=== PATIENT | female | born 1940 | race Caucasian/White ===

== ENCOUNTER → 2017-05-23 | Outpatient (CLI) | payer MEDICARE ==
--- NOTE | 2017-05-23 13:30 | Diagnostic Imaging Report ---
PROCEDURE: X-RAY CHEST, TWO VIEWS COMPARISON: Lumbar spine radiograph 07/19/2016. INDICATIONS: BRONCHITIS FINDINGS: LUNGS: No consolidations or edema. PLEURA: No effusions or pneumothorax. HEART \T\ MEDIASTINUM: The heart is within normal size-limits. BONES \T\ SOFT TISSUES: No acute findings. Mild L1 compression deformity is unchanged relative to 07/19/2016 lumbar spine radiographs. CONCLUSION: No acute thoracic abnormality. Dictated by: Brant Cordoba M.D. on 05/23/2017 at 13:31 Electronically approved by: Brant Cordoba M.D. on 05/23/2017 at 13:31
== END ==
LOC: RAD 12:11
PROVIDERS: ATTEND Family Medicine
DX: J40 Bronchitis, not specified as acute or chronic (principal)
CPT/HCPCS: 71046

== ENCOUNTER 2019-10-21 08:52 | Emergency (ER) | payer MEDICARE, OTHER ==
[~2019-10-21] VITALS: Ht 157.5 cm; Wt 79.4 kg
--- NOTE | 2019-10-21 09:07 | Emergency Department Note ---
History of Present Illnes History of Present Illness Chief Complaint: Chest Pain History of Present Illness This is a 79 year old female Chief Complaint Comment X 2 DAYS CONTINUO US SUBSTERNAL CHEST PAIN THAT RADIATES BILATERALLY. DENIES ANY N/V. STATES THE PAIN HAS PROGRESSIVELY INCREASED AND WOKE HER UP OUT OF SLEEP. Historian: Patient Arrival Mode: Car Additional Treatment IT QUALITY ASSURANCE ANALYST: NONE Systems Auditor Required: No Onset (how long ago): day(s) (2) Location: Chest Quality: Sharp Radiation: Reports non-radiation Severity: moderate Onset quality: gradual Duration (how long): day(s) (2) Timing of current episode: constant Progression: worsening Chronicity: new Context: Denies recent illness, Denies recent surgery Relieving factors: none Exacerbating factors: none Associated symptoms: Reports denies other symptoms Treatments prior to arrival: none Past Medical/Family History Physician Review I have reviewed the patient's past medical and family history. Any updates have been documented here. Past Medical History Recent Fever: No Clinical Suspicion of Infectio: No New/Unexplained Change in Ment: No Past Medical History: Hypertension, Diabetes, Hyperlipedemia Past Surgical History: Tubal Ligation Other Surgery: FOOT SURGERY Review of Systems Review of Systems Constitutional: Reports no symptoms EENTM: Reports no symptoms Cardiovascular: Reports as per HPI, Reports chest pain Respiratory: Reports no symptoms Gastrointestinal: Reports no symptoms Genitourinary: Reports no symptoms Musculoskeletal: Reports no symptoms Integumentary: Reports no symptoms Neurological: Reports no symptoms Psychological: Reports no symptoms Endocrine: Reports no symptoms Hematological/Lymphatic: Reports no symptoms Physical Exam Related Data Allergies: Coded Allergies: aspirin (Verified Allergy, Severe, FACIAL SWELLING, 10/21/19) Triage Vital Signs Vital Signs Date Time Temp Pulse Resp B/P (MAP) Pulse Ox O2 Delivery O2 Flow Rate FiO2 10/21/19 08:55 98.7 82 18 151/59 96 Vital signs reviewed: Yes Physical Exam CONSTITUTIONAL Constitutional: Present well-developed, Present well-nourished HENT HENT: Present normocephalic, Present atraumatic, Present oropharynx clear/moist, Present nose normal HENT L/R: Present left ext ear normal, Present right ext ear normal EYES Eyes: Reports PERRL, Reports conjunctivae normal NECK Neck: Present ROM normal PULMONARY Pulmonary: Present effort normal, Present breath sounds normal CARDIOVASCULAR Cardiovascular: Present regular rhythm, Present heart sounds normal, Present capillary refill normal, Present normal rate GASTROINTESTINAL Abdominal: Present soft, Present nontender, Present bowel sounds normal GENITOURINARY Genitourinary: Present exam deferred SKIN Skin: Present warm, Present dry MUSCULOSKELETAL Musculoskeletal: Present ROM normal NEUROLOGICAL Neurological: Present alert, Present oriented x 3, Present no gross motor or sensory deficits PSYCHOLOGICAL Psychological: Present mood/affect normal, Present judgement normal Procedures 12 Lead ECG Interpretation ECG Interpretation : Systems Auditor: Interpreted by ED physician Date: Oct 21, 2019 Rhythm: sinus rhythm Rate: normal BPM: 72 QRS axis: normal ST segments normal: Yes T wave inversion: III Clinical Impression: non-specific ECG Assessment & Plan Medical Decision Making MDM 79-year-old female with a past medical history significant for diabetes presents to emergency department for 2 days chest pain. The pain is worse when taking a deep breath. She has never had this before, no history of heart attacks. Initial differential includes ACS versus pulmonary embolism versus pneumonia versus muscular skeletal pain. Work up shows no sig abnormalities. Doubt emergent process at this time. I discussed results patient as well as expected disease time course and management. They will follow up with their primary care provider or return to the emergency department for new or worsening symptoms. Patient's appropriate for discharge. Part of this note was dictated with Fidel and is subject to recognition errors. Reassessment Reassessment time: 10:47 Reassessment Well appearing, NAD Assessment & Plan Final Impression: (1) Chest wall pain Depart Disposition: HOME, SELF-CARE Last Vital Signs Date Time Temp Pulse Resp B/P (MAP) Pulse Ox O2 Delivery O2 Flow Rate FiO2 10/21/19 08:55 98.7 82 18 151/59 96 JAISON DELAROSA MD Oct 21, 2019 09:07
[2019-10-21 09:15] LABS: BASOPHILS # (AUTO) 0.1 (0.0-0.1); BASOPHILS % 0.6 % (0.0-1.0); EOSINOPHILS # (AUTO) 0.1 (0.0-0.4); EOSINOPHILS % 1.7 % (0.0-6.0); HEMATOCRIT 36.9 % (34.2-44.1); HEMOGLOBIN 12.5 g/dL (12.0-16.0); LYMPHOCYTES # (AUTO) 1.7 (1.0-3.2); LYMPHOCYTES % 20.6 % (18.0-39.1); MEAN CORPUSCULAR HEMOGLOBIN 29.3 pg (28-32); MEAN CORPUSCULAR HGB CONC 33.9 g/dL (31-35); MEAN CORPUSCULAR VOLUME 86.6 fL (81-99); MONOCYTES # (AUTO) 0.8 (0.2-0.8); MONOCYTES % 9.1 % (4.4-11.3); NEUTROPHILS # (AUTO) 5.7 (2.1-6.9); NEUTROPHILS % 67.8 % (38.7-80.0); PLATELET COUNT 215 x10e3/uL (140-360); RED BLOOD COUNT 4.26 x10e6/uL (3.6-5.1); RED CELL DISTRIBUTION WIDTH 12.3 % (11.7-14.4)
--- OUTSIDE RECORDS SUMMARY | 2019-10-21 09:32 | XMS REPORT | Continuity of Care Document ---
Author Author [facility] t Organization [facility] Address [address] [place] [address] Dr. Franklin. [address] [place] [phone] Phone Unavailable Care Team Providers [employer] Sales Representative Name Role Phone DELONTE LEWIS Atthossein Unavailable Problems This patient has no known problems. Allergies, Adverse Reactions, Alerts This patient has no known allergies or adverse reactions. Medications This patient has no known medications. Procedures This patient has no known procedures. Results Test Description Test Time Test Comments Results Result Comments Source CHEST [address] [address] Patient Name: CEASAR CHRIS MR #: [id number] : 1940 Age/Sex: 76/F Req #: [id number] Adm Physician: Ordered by: JOSHUA ANDINO, DELONTE Little MD Report #: [id number] Location: [facility] Room/Bed: Procedure: [id number] DX/CHEST 2 VIEWS Exam Date: 05/23/17 Exam Time: 1250 REPORT STATUS: Signed PROCEDURE: X-RAY CHEST, TWO VIEWS COMPARISON: Lumbar spine radiograph 07/19/2016. INDICATIONS: BRONCHITIS FINDINGS: LUNGS: No consolidations or edema. PLEURA: No effusions or pneumothorax. HEART T MEDIASTINUM: The heart is within normal size-limits. BONES T SOFT TISSUES: No acute findings. Mild L1 compression deformity is unchanged relative to 07/19/2016 lumbar spine radiographs. CONCLUSION: No acute thoracic abnormality. Dictated by: Gloria Guthrie M.D. on 05/23/2017 at 13:31 Electronically approved by: Gloria Guthrie M.D. on 05/23/2017 at 13:31 Dictated By: GLORIA GUTHRIE MD [id number] Transcribed By: CM on 05/23/17 1331 COPY TO: DELONTE LEWIS
[2019-10-21 09:42] LABS: ALBUMIN 4.1 g/dL (3.5-5.0); ALBUMIN/GLOBULIN RATIO 1.4 (0.8-2.0); ANION GAP 18.9 mmol/L (8-16); CREATININE, SERUM 1.35 mg/dL (0.57-1.11); POTASSIUM 3.9 mmol/L (3.5-5.1)
--- NOTE | 2019-10-21 09:56 | Diagnostic Imaging Report ---
TECHNIQUE: Frontal view of the chest. INDICATION: ^Y ^CP ^[id number] ^0930 COMPARISON: None DISCUSSION: Limited evaluation due to portable technique. Lines and hardware: Overlying EKG leads are noted. Heart and mediastinum: Cardiomediastinal silhouette, pulmonary vascularity and mediastinal contours are within normal limits. Lungs and pleura: No focal airspace consolidation. No pleural effusion. No pneumothorax. Soft tissues and bones: No acute abnormality. IMPRESSION: Negative for acute intrathoracic process. Signed by: Wes Beltrán MD on 10/21/2019 9:53 AM
--- NOTE | 2019-10-21 10:48 | NUR ---
DR. CHASE AT BEDSIDE UPDATING PATIENT ON RESULTS
[2019-10-21 10:54] VITALS: BP 100/66
== END 2019-10-21 11:11 | disposition home or self-care (01) ==
LOC: ER 09:30
DX: R07.89 Other chest pain (principal); I10 Essential (primary) hypertension; E11.9 Type 2 diabetes mellitus without complications; E78.5 Hyperlipidemia, unspecified
CPT/HCPCS: 36415; 71045; 80053; 83690; 83880; 84484; 85025; 85379; 93005; 99283

== ENCOUNTER 2020-10-10 13:11 | Inpatient (IN) | payer MEDICARE ==
[~2020-10-10] VITALS: Ht 157.5 cm; Wt 79.4 kg
[2020-10-10 14:15] LABS: BASOPHILS % 0.4 % (0.0-1.0); EOSINOPHILS # (AUTO) 0.1 (0.0-0.4); EOSINOPHILS % 1.3 % (0.0-6.0); HEMATOCRIT 37.2 % (34.2-44.1); HEMOGLOBIN 12.1 g/dL (12.0-16.0); LYMPHOCYTES # (AUTO) 2.9 (1.0-3.2); LYMPHOCYTES % 26.5 % (18.0-39.1); MEAN CORPUSCULAR HEMOGLOBIN 28.7 pg (28-32); MEAN CORPUSCULAR HGB CONC 32.5 g/dL (31-35); MEAN CORPUSCULAR VOLUME 88.4 fL (81-99); MONOCYTES # (AUTO) 0.7 (0.2-0.8); MONOCYTES % 6.4 % (4.4-11.3); PLATELET COUNT 262 x10e3/uL (140-360); RED BLOOD COUNT 4.21 x10e6/uL (3.6-5.1); RED CELL DISTRIBUTION WIDTH 12.3 % (11.7-14.4)
[2020-10-10 14:32] LABS: ALBUMIN 3.6 g/dL (3.5-5.0); ANION GAP 19.3 mmol/L (8-16); CALCIUM 9.2 mg/dL (8.4-10.2); POTASSIUM 5.3 mmol/L (3.5-5.1)
[2020-10-10] MEDS ORDERED: SODIUM CHLORIDE 0.9% 1000ML 1,000 ML IV SCH (14:45)
[2020-10-10 14:46] LABS: CREATININE, SERUM 3.2 mg/dL (0.57-1.11)
[2020-10-10] MEDS ORDERED: SODIUM CHLORIDE 0.9% 1000ML 1,000 ML ONE (14:59)
[2020-10-10 15:50] LABS: CLARITY,URINE CLOUDY (CLEAR); COLOR,URINE YELLOW (YELLOW); LEUKOCYTE ESTERASE ,URINE 1+ (NEGATIVE); NITRITE,URINE NEGATIVE (NEGATIVE); PROTEIN,URINE DIPSTICK TRACE (NEGATIVE)
[2020-10-10 15:51] LABS: KETONES,URINE TRACE (NEGATIVE); URINE UROBILINOGEN 0.2 mg/dL (0.2 - 1)
[2020-10-10] MEDS ORDERED: CENTRUM SILVER1 EAC5 (15:57)
[2020-10-10] MEDS ORDERED: OS-CAL 500+D T1 EACH PO (15:58)
[2020-10-10] MEDS ORDERED: BENICAR20 MG PO (15:59)
[2020-10-10] MEDS ORDERED: MAGNESIUM 300300 MG (15:59)
[2020-10-10] MEDS ORDERED: SERTRALINE HCL50 MG PO (16:00)
[2020-10-10] MEDS ORDERED: GLIPIZIDE5 MG PO (16:01)
[2020-10-10] MEDS ORDERED: METOPROLOL TAR100 MG PO (16:02)
[2020-10-10] MEDS ORDERED: HYDROCHLOROTH12.5 MG (16:03)
[2020-10-10] MEDS ORDERED: PRAVASTATIN SOD40 MG (16:03)
[2020-10-10] MEDS ORDERED: VITAMIN D250 MCG (16:04)
[2020-10-10] MEDS ORDERED: ZETIA10 MG PO (16:04)
[2020-10-10] MEDS ORDERED: CETIRIZINE HCL10 M1 (16:05)
[2020-10-10] MEDS ORDERED: PIOGLITAZONE HC45 MG PO (16:05)
[2020-10-10 16:12] LABS: BACTERIA,URINE FEW /HPF; EPITHELIAL CELLS,URINE MODERATE /LPF
[2020-10-10 16:15] LABS: YEAST,URINE MANY
[2020-10-10] MEDS ORDERED: FUROSEMIDE INJ 10 MG/ML 4 ML VIAL IV ONE (17:30)
[2020-10-10] MEDS: CEFTRIAXONE 1 GM in SODIUM CHLORIDE 0.9% 50ML 50 ML IV SCH (17:56)
[2020-10-10] MEDS ORDERED: FUROSEMIDE INJ 10 MG/ML 4 ML VIAL ONE (21:07)
[2020-10-10 22:20] VITALS: BP 125/58
[2020-10-10 22:23] VITALS: BP 125/58
[2020-10-10] MEDS ORDERED: MORPHINE SULFATE INJ 2 MG/ML SYR IV PRN (23:15)
[2020-10-10] MEDS: PRAVASTATIN 20 MG TAB PO SCH (23:45)
[2020-10-10] MEDS: ACETAMINOPHEN/CODEINE 300MG - 30MG TAB PO PRN (23:45)
[2020-10-10] MEDS: SODIUM CHLORIDE 0.9% 1000ML 1,000 ML IV SCH (23:50)
[2020-10-11] VITALS (8 sets, daily range): BP systolic 103–129; BP diastolic 45–60
[2020-10-11 05:41] LABS: BASOPHILS % 0.4 % (0.0-1.0); EOSINOPHILS # (AUTO) 0.2 (0.0-0.4); EOSINOPHILS % 2.1 % (0.0-6.0); HEMATOCRIT 34.6 % (34.2-44.1); HEMOGLOBIN 11.3 g/dL (12.0-16.0); LYMPHOCYTES # (AUTO) 2.8 (1.0-3.2); LYMPHOCYTES % 35.2 % (18.0-39.1); MEAN CORPUSCULAR HEMOGLOBIN 28.8 pg (28-32); MEAN CORPUSCULAR HGB CONC 32.7 g/dL (31-35); MONOCYTES # (AUTO) 0.6 (0.2-0.8); MONOCYTES % 7.2 % (4.4-11.3); NEUTROPHILS # (AUTO) 4.4 (2.1-6.9); NEUTROPHILS % 54.9 % (38.7-80.0); PLATELET COUNT 199 x10e3/uL (140-360); RED BLOOD COUNT 3.93 x10e6/uL (3.6-5.1); RED CELL DISTRIBUTION WIDTH 12.2 % (11.7-14.4)
[2020-10-11 06:12] LABS: ANION GAP 16.3 mmol/L (8-16); CALCIUM 8.7 mg/dL (8.4-10.2); CREATININE, SERUM 2.11 mg/dL (0.57-1.11); POTASSIUM 4.3 mmol/L (3.5-5.1)
[2020-10-11] MEDS: INSULIN LISPRO 100 UNIT/1 ML 3ML VIAL SQ SCH ×4 (07:30→21:40)
[2020-10-11] MEDS: HEPARIN SOD (PORCINE) 5,000 UNIT/ML VIAL SC SCH ×2 (09:00→21:45)
[2020-10-11] MEDS: METOPROLOL TARTRATE 50 MG TAB PO SCH (09:00)
[2020-10-11] MEDS: SODIUM CHLORIDE 0.9% 1000ML 1,000 ML IV SCH ×2 (09:15→21:53)
[2020-10-11] MEDS: OYST-CAL-D 500MG TABLET PO SCH (09:17)
[2020-10-11] MEDS: SERTRALINE HCL 50 MG TAB PO SCH (09:17)
[2020-10-11] MEDS: EZETIMIBE 10 MG TAB PO SCH (09:17)
[2020-10-11] MEDS ORDERED: GLIPIZIDE 5 MG TAB ER PO SCH (10:30)
[2020-10-11] MEDS: FLUCONAZOLE 100 MG TAB PO SCH (12:15)
[2020-10-11] MEDS: ACETAMINOPHEN/CODEINE 300MG - 30MG TAB PO PRN (12:42)
[2020-10-11] MEDS ORDERED: METHYLPREDNISOLONE SOD SUCC 40 MG/ML VIAL 1ML IV ONE (13:00)
[2020-10-11] MEDS: CEFTRIAXONE 1 GM in SODIUM CHLORIDE 0.9% 50ML 50 ML IV SCH (17:00)
[2020-10-11] MEDS: PRAVASTATIN 20 MG TAB PO SCH (21:45)
[2020-10-12] VITALS (11 sets, daily range): BP systolic 102–137; BP diastolic 47–55
[2020-10-12 05:51] LABS: BASOPHILS % 0.1 % (0.0-1.0); HEMATOCRIT 35.5 % (34.2-44.1); HEMOGLOBIN 11.7 g/dL (12.0-16.0); LYMPHOCYTES # (AUTO) 0.9 (1.0-3.2); MEAN CORPUSCULAR HEMOGLOBIN 28.6 pg (28-32); MEAN CORPUSCULAR VOLUME 86.8 fL (81-99); MONOCYTES # (AUTO) 0.2 (0.2-0.8); MONOCYTES % 2.2 % (4.4-11.3); NEUTROPHILS # (AUTO) 6.6 (2.1-6.9); NEUTROPHILS % 85.1 % (38.7-80.0); PLATELET COUNT 238 x10e3/uL (140-360); RED BLOOD COUNT 4.09 x10e6/uL (3.6-5.1)
[2020-10-12 06:23] LABS: ANION GAP 16.7 mmol/L (8-16); CALCIUM 9.1 mg/dL (8.4-10.2); CREATININE, SERUM 1.72 mg/dL (0.57-1.11)
[2020-10-12 07:06] LABS: POTASSIUM 5.7 mmol/L (3.5-5.1)
[2020-10-12] MEDS ORDERED: SOD POLYSTYRENE SULFONATE SUSP 15 GM/60 ML BTL PO ONE (08:30)
[2020-10-12] MEDS: INSULIN LISPRO 100 UNIT/1 ML 3ML VIAL SQ SCH ×4 (08:35→21:48)
[2020-10-12] MEDS: HEPARIN SOD (PORCINE) 5,000 UNIT/ML VIAL SC SCH ×2 (10:00→21:47)
[2020-10-12] MEDS: OYST-CAL-D 500MG TABLET PO SCH (10:30)
[2020-10-12] MEDS: FLUCONAZOLE 100 MG TAB PO SCH (10:30)
[2020-10-12] MEDS: EZETIMIBE 10 MG TAB PO SCH (10:30)
[2020-10-12] MEDS: METOPROLOL TARTRATE 50 MG TAB PO SCH (10:30)
[2020-10-12] MEDS: SERTRALINE HCL 50 MG TAB PO SCH (10:30)
[2020-10-12] MEDS: GLIPIZIDE 5 MG TAB ER PO SCH (10:34)
[2020-10-12] MEDS: SODIUM CHLORIDE 0.9% 1000ML 1,000 ML IV SCH (14:15)
[2020-10-12] MEDS: CEFTRIAXONE 1 GM in SODIUM CHLORIDE 0.9% 50ML 50 ML IV SCH (18:10)
[2020-10-12] MEDS: PRAVASTATIN 20 MG TAB PO SCH (21:00)
[2020-10-13] VITALS (8 sets, daily range): BP systolic 121–144; BP diastolic 50–92
[2020-10-13] MEDS: SODIUM CHLORIDE 0.9% 1000ML 1,000 ML IV SCH ×2 (05:58→16:39)
[2020-10-13 07:40] LABS: ANION GAP 18.3 mmol/L (8-16); CALCIUM 8.9 mg/dL (8.4-10.2); CREATININE, SERUM 1.33 mg/dL (0.57-1.11); POTASSIUM 4.3 mmol/L (3.5-5.1)
[2020-10-13] MEDS: GLIPIZIDE 5 MG TAB ER PO SCH ×2 (07:59→17:21)
[2020-10-13] MEDS: INSULIN LISPRO 100 UNIT/1 ML 3ML VIAL SQ SCH ×4 (08:20→21:06)
[2020-10-13] MEDS: EZETIMIBE 10 MG TAB PO SCH (09:19)
[2020-10-13] MEDS: METOPROLOL TARTRATE 50 MG TAB PO SCH (09:19)
[2020-10-13] MEDS: OYST-CAL-D 500MG TABLET PO SCH (09:19)
[2020-10-13] MEDS: SERTRALINE HCL 50 MG TAB PO SCH (09:19)
[2020-10-13] MEDS: HEPARIN SOD (PORCINE) 5,000 UNIT/ML VIAL SC SCH ×2 (09:38→21:05)
[2020-10-13] MEDS: ACETAMINOPHEN/CODEINE 300MG - 30MG TAB PO PRN (09:51)
[2020-10-13] MEDS ORDERED: METHYLPREDNISOLONE SOD SUCC 40 MG/ML VIAL 1ML IV ONE (13:00)
[2020-10-13] MEDS: PRAVASTATIN 20 MG TAB PO SCH (20:54)
[2020-10-14 00:42] VITALS: BP 127/61
[2020-10-14 04:00] VITALS: BP 130/58
[2020-10-14 06:16] LABS: ANION GAP 18.8 mmol/L (8-16); CREATININE, SERUM 1.35 mg/dL (0.57-1.11); POTASSIUM 4.8 mmol/L (3.5-5.1)
[2020-10-14] MEDS: INSULIN LISPRO 100 UNIT/1 ML 3ML VIAL SQ SCH ×2 (07:30→11:30)
[2020-10-14 07:42] VITALS: BP 152/64
[2020-10-14] MEDS: GLIPIZIDE 5 MG TAB ER PO SCH (08:47)
[2020-10-14] MEDS: OYST-CAL-D 500MG TABLET PO SCH (08:48)
[2020-10-14] MEDS: SERTRALINE HCL 50 MG TAB PO SCH (08:48)
[2020-10-14] MEDS: EZETIMIBE 10 MG TAB PO SCH (08:48)
[2020-10-14] MEDS: METOPROLOL TARTRATE 50 MG TAB PO SCH (08:48)
[2020-10-14] MEDS: HEPARIN SOD (PORCINE) 5,000 UNIT/ML VIAL SC SCH (08:49)
[2020-10-14 09:00] VITALS: BP 152/61
[2020-10-14 11:03] VITALS: BP 143/64
[2020-10-14] MEDS: SODIUM CHLORIDE 0.9% 1000ML 1,000 ML IV SCH (12:39)
[2020-10-14] MEDS ORDERED: LIDOCAINE1 EAC1 TP (12:43)
[2020-10-14] MEDS ORDERED: Acetaminophen/Codeine 300-30MG PO (12:43)
[2020-10-14] MEDS: ACETAMINOPHEN/CODEINE 300MG - 30MG TAB PO PRN (13:24)
[2020-10-14] MEDS ORDERED: HYDROCODON-ACE1 EA10 PO (16:25)
[2020-10-14] MEDS ORDERED: HYDROCODON-ACE1 EA11 PO (18:14)
== END 2020-10-14 15:17 | disposition home or self-care (01) | DRG 543 ==
LOC: ER 13:19 → ERHOLD 16:34 → MED/SURG3 21:32 → OBSVTOIN 10-11 17:40
PROVIDERS: ADMIT Internal Medicine; ATTEND Internal Medicine
DX: M48.56XA Collapsed vertebra, not elsewhere classified, lumbar region, initial encounter for fracture (principal); N17.9 Acute kidney failure, unspecified; N10 Acute pyelonephritis; E86.0 Dehydration; E11.65 Type 2 diabetes mellitus with hyperglycemia; E11.22 Type 2 diabetes mellitus with diabetic chronic kidney disease; I12.9 Hypertensive chronic kidney disease with stage 1 through stage 4 chronic kidney disease, or unspecified chronic kidney disease; N18.30 Chronic kidney disease, stage 3 unspecified; Z20.822 Contact with and (suspected) exposure to COVID-19; E78.5 Hyperlipidemia, unspecified; Z88.6 Allergy status to analgesic agent; Z83.3 Family history of diabetes mellitus; E87.5 Hyperkalemia; Z79.84 Long term (current) use of oral hypoglycemic drugs
CPT/HCPCS: 36415; 72100; 72148; 74176; 80048; 80053; 81001; 82948; 85025; 87086; 96360; 96365; 97139; 99284; G0378; J0696; J1644; J1940; J2920; J7030; U0002

== ENCOUNTER → 2023-12-20 | Day surgery (SDC) | payer MEDICARE ==
[2023-12-17 13:52] LABS: BASOPHILS # (AUTO) 0.1 (0.0-0.1); BASOPHILS % 0.6 % (0.0-1.0); EOSINOPHILS # (AUTO) 0.2 (0.0-0.4); EOSINOPHILS % 1.7 % (0.0-6.0); HEMOGLOBIN 12.1 g/dL (12.0-16.0); LYMPHOCYTES % 22.1 % (18.0-39.1); MEAN CORPUSCULAR HEMOGLOBIN 28.8 pg (28-32); MEAN CORPUSCULAR HGB CONC 31.8 g/dL (31-35); MEAN CORPUSCULAR VOLUME 90.5 fL (81-99); MONOCYTES # (AUTO) 0.6 (0.2-0.8); MONOCYTES % 6.3 % (4.4-11.3); NEUTROPHILS # (AUTO) 6.2 (2.1-6.9); NEUTROPHILS % 69.1 % (38.7-80.0); PLATELET COUNT 255 x10e3/uL (140-360); RED CELL DISTRIBUTION WIDTH 12.6 % (11.7-14.4); WHITE BLOOD COUNT 8.99 x10e3/uL (4.8-10.8)
[2023-12-17 14:14] LABS: ALBUMIN 3.7 g/dL (3.5-5.0); ANION GAP 16.3 mmol/L (8-16); BILIRUBIN,TOTAL 0.7 mg/dL (0.2-1.2); CALCIUM 9.8 mg/dL (8.4-10.2); CREATININE, SERUM 1.58 mg/dL (0.57-1.11); TOTAL PROTEIN 7.3 g/dL (6.5-8.1)
[2023-12-17 14:15] LABS: POTASSIUM 5.3 mmol/L (3.5-5.1)
[~2023-12-20] MED LIST: ACETAMINOPHEN 1000 MG/100 ML 100 ML IV ONE; ATORVASTATIN CA20 MG PO; Acetaminophen/Codeine 300-30MG PO; BENICAR20 MG PO; BUPIVACAINE 0.25% 30ML SDV ONE; CEFDINIR300 MG PO; CENTRUM ADULTS1 EACH PO; CENTRUM SILVER1 EAC5; CEPHALEXIN500 MG PO; CETIRIZINE HCL10 M1; FUROSEMIDE20 MG PO; GLIPIZIDE5 MG PO; HYDROCHLOROTH12.5 MG; HYDROCODON-ACE1 EA10 PO; HYDROCODON-ACE1 EA11 PO; HYDROCODONE/APAP 7.5MG-325MG 1 EA TAB ONE; LEVEMIR100 UNIT/1 SC; LIDOCAINE1 EAC1 TP; MAGNESIUM 300300 MG; METOPROLOL TAR100 MG PO; OMEPRAZOLE40 MG PO; ONDANSETRON ODT4 MG PO; ONDANSETRON ODT4 MG SL; OS-CAL 500+D T1 EACH PO; PIOGLITAZONE HC45 MG PO; PRAVASTATIN SOD40 MG; SERTRALINE HCL50 MG PO; VITAMIN D250 MCG; ZETIA10 MG PO; ZINC CHELATED50 M2 PO
[2023-12-20] MEDS: LACTATED RINGER'S 1,000 ML ONE (10:01)
[2023-12-20 14:35] VITALS: BP 163/78; PULSE 71; RESP 17; O2SAT 99
== END | disposition home or self-care (01) ==
LOC: OR 09:33 → MERGE 11:30
PROVIDERS: ATTEND Surgery
DX: K80.10 Calculus of gallbladder with chronic cholecystitis without obstruction (principal); K76.0 Fatty (change of) liver, not elsewhere classified; I10 Essential (primary) hypertension; E11.9 Type 2 diabetes mellitus without complications; Z79.4 Long term (current) use of insulin; Z79.84 Long term (current) use of oral hypoglycemic drugs; K21.9 Gastro-esophageal reflux disease without esophagitis; E66.9 Obesity, unspecified; Z01.810 Encounter for preprocedural cardiovascular examination; Z01.812 Encounter for preprocedural laboratory examination; Z01.818 Encounter for other preprocedural examination; Z79.899 Other long term (current) drug therapy
CPT/HCPCS: 36415 ×2; 47562; 71046; 80053; 82948; 85025; 88304; 93005; J0131; J7121